=== PATIENT | female | born 1955 | race Caucasian/White ===

== ENCOUNTER 2021-03-06 16:17 | Emergency (ER) | payer MEDICARE ==
[~2021-03-06] VITALS: Ht 152.4 cm; Wt 62.1 kg
[2021-03-06] MEDS ORDERED: KETOROLAC 30 MG/1 ML ONE (17:47)
--- NOTE | 2021-03-06 17:59 | NUR ---
Pt to ct
[2021-03-06] MEDS ORDERED: KETOROLAC 30 MG/1 ML IM ONE (18:00)
--- NOTE | 2021-03-06 19:05 | NUR ---
FIRST CONTACT WITH PATIENT. PATIENT SITTING IN CHAIR IN ROOM READING BOOK. NAD. DIRECTED PATIENT TO RESTROOM, COLLECTED AND SENT URINE. PATIENT DENIES NEEDS AT THIS TIME. VSS. WILL CONTINUE TO MONITOR.
[2021-03-06 19:09] VITALS: BP 136/88
== END 2021-03-06 20:24 | disposition home or self-care (01) ==
LOC: ED 19:20
DX: S22.080A Wedge compression fracture of T11-T12 vertebra, initial encounter for closed fracture (principal); Z90.49 Acquired absence of other specified parts of digestive tract; W18.30XA Fall on same level, unspecified, initial encounter; Y93.89 Activity, other specified; Y92.89 Other specified places as the place of occurrence of the external cause; Y99.8 Other external cause status
CPT/HCPCS: 72131; 96372; 99284; J1885